=== PATIENT | female | born 1950 | race Caucasian/White ===

== ENCOUNTER → 2019-07-04 12:30 | Outpatient (CLI) | payer OTHER, SELFPAY ==
--- NOTE | 2019-07-04 12:41 | DI.US.S_ITS ---
PROCEDURE: US PELVIC COMPLETE INDICATIONS: PMB TECHNIQUE: Real-time scanning was performed of the pelvic organs, with image documentation. Additional endovaginal scanning was necessary due to incomplete visualization of the adnexal and endometrial structures by transabdominal scanning. COMPARISON: None. FINDINGS: Transabdominal scanning: Limited scanning through the kidneys shows no hydronephrosis. No pathologic free abdominal or pelvic fluid. Endovaginal scanning: Uterus: Uterus is normal in size at 7.4 x 4.3 cm. The endometrium measures 6 mm in combined thickness. Hypoechoic uterine lesions are seen, which are attributed to fibroids. They measure as follows: Left posterior uterus, intramural, 3 x 1.9 x 2.4 cm Left posterior uterus, lower uterine segment, intramural, 2 x 6 x 2.1 x 2.5 cm Ovaries: Neither ovary can be seen. No adnexal masses are seen. IMPRESSION: The endometrial stripe is mildly thickened in this patient with a given history of postmenopausal bleeding. Differential diagnosis includes endometrial neoplasm and endometrial hyperplasia. Recommend correlation with endometrial histology, as clinically appropriate. Uterine fibroids are incidentally noted. Dictated by: Matt Olmos M.D. on 07/04/2019 at 14:27 Approved by: Matt Olmos M.D. on 07/04/2019 at 14:29
== END ==
PROVIDERS: Visit Provider Physician Assistant
DX: N95.0 Postmenopausal bleeding (principal); D25.1 Intramural leiomyoma of uterus; R93.89 Abnormal findings on diagnostic imaging of other specified body structures
CPT/HCPCS: 76856